=== PATIENT | female | born 1960 | race American Indian/Alaskan Native ===

== ENCOUNTER 2020-02-06 15:33 | Emergency (ER) | payer OTHER ==
[2020-02-06 15:55] VITALS: BP 163/78
--- NOTE | 2020-02-06 16:05 | Event Note ---
ED Screening Note Date of service: 02/06/20 Time: 16:03 ED Screening Note: 59-year-old female presents to the emergency room for 5-day history of left lower leg on the lateral side pain patient denies any injuries. Patient denies any shortness of breath or chest pain. Patient states that she has been taken Tylenol without much relief. Patient reports that [facility] told her to come to the emergency room to be evaluated. This initial assessment/diagnostic orders/clinical plan/treatment(s) is/are subject to change based on patients health status, clinical progression and re- assessment by fellow clinical providers in the ED. Further treatment and workup at subsequent clinical providers discretion. Patient/guardian urged not to elope from the ED as their condition may be serious if not clinically assessed and managed. Initial orders include:
== END 2020-02-06 21:00 | disposition left against medical advice (07) ==
LOC: ED 15:33
DX: M79.662 Pain in left lower leg (principal); Z53.21 Procedure and treatment not carried out due to patient leaving prior to being seen by health care provider